=== PATIENT | male | born 1940 | race Caucasian/White ===

== ENCOUNTER → 2017-02-06 | Outpatient (CLI) | payer MEDICARE, BC ==
[~2017-02-06] MED LIST: CARB1TAB23 PO; FOLI-49 PO; LEVO150T67 PO; META800T99 PO; PANT40TA4 PO; QUET25TA26 PO; SUCR1TAB56 PO; TAMS-14 PO; VERA80TA PO
--- NOTE | 2017-02-06 16:17 | RADRPT ---
PROCEDURE: CT Brain without contrast. CLINICAL INDICATION: Severe headache. TECHNIQUE: A CT of the brain without contrast was performed utilizing axial sections from the skul l base through the vertex. The patient was scanned without intravenous contrast enhancement. Sagitta l and coronal reformatted images were obtained using the data from the axial images. Total exam DLP is 630.20 mGy-cm. CTDIvol is 43.16 mGy. One or more of the following dose reduction techniques we re used: Automated exposure control, adjustment of the mA and/or kV according to patient size, use o f iterative reconstruction technique. COMPARISON: 07/15/2015. FINDINGS: There is normal cornejo-white matter differentiation. There is enlargement of the ventricles and subarachnoid spaces consistent with atrophy. There is decreased attenuation of the periventricular white matter consistent with microangiopathic ischemic change. There is no intracranial hemorrhage or space-occupying lesion. There are vascular calcifications consistent with atherosclerosis. There is no skull fracture or lytic lesion. Previously noted partial right ethmoid air cell opacific ation and partial right mastoid air cell opacification is no longer present. The visualized portion s of the paranasal sinuses and mastoids are normal. IMPRESSION: 1. Atrophy. 2. Microangiopathic ischemic change. 3. Atherosclerosis. 4. No intracranial hemorrhage. 5. Otherwise unremarkable noncontrast CT scan of the brain. 6. Previously noted right ethmoid and mastoid disease is no longer present. 7. No other change from 07/15/2015. RPTAT: QQ .Jorge Alberto Broussard MD, MD Date Time Electronically viewed and signed by .Jroge Alberto Broussard MD, MD on 02/06/2017 16:16 .R/
== END | disposition home or self-care (01) ==
LOC: C/S 10:18
PROVIDERS: ATTEND Internal Medicine
DX: R51 Headache (principal)
CPT/HCPCS: 70450